=== PATIENT | male | born 1995 ===

== ENCOUNTER 2018-06-03 13:46 | Emergency (ER) | payer MEDICAID ==
[2018-06-03 14:20] VITALS: TEMP 97.7
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
[2018-06-03 16:01] VITALS: BP 130/78; PULSE 78; RESP 18
[2018-06-04 15:29] VITALS: O2SAT 98
== END 2018-06-03 16:01 | disposition home or self-care (01) ==
LOC: H.ER 13:46
DX: M54.9 Dorsalgia, unspecified (principal)
CPT/HCPCS: 96372; 99283; J1885